=== PATIENT | female | born 1945 | race Caucasian/White ===

== ENCOUNTER 2017-11-17 01:03 | Outpatient (CLI) | payer MEDICARE, OTHER, SELFPAY ==
[2017-11-17 12:19] LABS: Hemoglobin A1C 7.7 % (4.5-6.2)
== END 2017-11-17 01:23 ==
PROVIDERS: PCP Emergency Medicine; Visit Provider Emergency Medicine
DX: E11.9 Type 2 diabetes mellitus without complications (principal)
CPT/HCPCS: 36415; 82533; 83036

== ENCOUNTER 2018-03-16 12:37 | Outpatient (CLI) | payer MEDICARE, OTHER, SELFPAY ==
[2018-03-16 13:45] LABS: COMMENT (LAB VIEW ONLY) 224.63 mg/dL; Microalb ug/mg Crea 6.1 ug/mg Cr
== END 2018-03-16 12:57 ==
PROVIDERS: PCP Emergency Medicine; Visit Provider Emergency Medicine
DX: E11.9 Type 2 diabetes mellitus without complications (principal)
CPT/HCPCS: 36415; 82043; 82570; 83036

== ENCOUNTER 2018-09-12 01:57 | Outpatient (CLI) | payer MEDICARE, OTHER, SELFPAY ==
[2018-09-12 11:39] LABS: Anion Gap 12.7 mmol/L (3-11); BUN 16 mg/dL (7-18); CO2 25.3 mmol/L (21.0-32.0); CREATININE 0.82 mg/dL (0.55-1.02); Chloride 104 mmol/L (98-107); Glucose 209 mg/dL (70-100); Potassium 3.8 mmol/L (3.5-5.1); Sodium 142 mmol/L (136-145)
[2018-09-12 11:40] LABS: Hemoglobin A1C 7.8 % (4.5-6.2)
== END 2018-09-12 02:17 ==
PROVIDERS: PCP Emergency Medicine; Visit Provider Emergency Medicine
DX: E11.9 Type 2 diabetes mellitus without complications (principal)
CPT/HCPCS: 36415; 80048; 83036

== ENCOUNTER 2019-08-08 01:24 | Outpatient (CLI) | payer MEDICARE, OTHER, SELFPAY ==
--- NOTE | 2019-08-08 06:45 | DI.US_ITS ---
EXAM: US ABDOMEN CLINICAL HISTORY: LUQ epigastric pain,r10.11 TECHNIQUE: Ultrasound abdomen performed using standard protocol. COMPARISON: CT RENAL COLIC WO CONTRAST from 05/19/2014 FINDINGS: ABDOMINAL AORTA AND IVC: Visualized portions normal caliber. PANCREAS: Normal where visualized. LIVER: Hepatomegaly. Fatty infiltration. Hepatopedal flow in the Portal Vein. GALLBLADDER: Status post cholecystectomy. BILIARY SYSTEM: Common bile duct measures 5.3 mm. No intrahepatic biliary ductal dilation. KIDNEYS: Kidneys are symmetric in size. No evidence of renal calculi. Mild prominence of the left deneen al pelvis. This may represent a extrarenal pelvis versus mild hydronephrosis.. No renal mass or cys t identified. SPLEEN: Not enlarged. ASCITES: None seen. IMPRESSION: 1. Mild prominence of the left renal pelvis. This may represent mild hydronephrosis versus left extr arenal pelvis. Please correlate clinically. 2. Hepatomegaly and hepatic steatosis. 3. Status post cholecystectomy no biliary ductal dilatation. DATA REPOSITORY:
== END 2019-08-08 01:44 ==
PROVIDERS: PCP Emergency Medicine; Visit Provider Emergency Medicine
DX: R10.12 Left upper quadrant pain (principal); R10.13 Epigastric pain; K76.0 Fatty (change of) liver, not elsewhere classified; N13.30 Unspecified hydronephrosis; R16.0 Hepatomegaly, not elsewhere classified; Z90.49 Acquired absence of other specified parts of digestive tract
CPT/HCPCS: 76700

== ENCOUNTER 2019-08-08 02:24 | Outpatient (CLI) | payer MEDICARE, OTHER, SELFPAY ==
[2019-08-08 08:42] LABS: Anion Gap 13.3 mmol/L (3-11); BUN 14 mg/dL (7-18); CO2 22.7 mmol/L (21.0-32.0); CREATININE 0.77 mg/dL (0.55-1.02); Calcium 9.3 mg/dL (8.5-10.1); Chloride 104 mmol/L (98-107); Glucose 203 mg/dL (74-106); Sodium 140 mmol/L (136-145)
== END 2019-08-08 02:44 ==
PROVIDERS: PCP Emergency Medicine; Visit Provider Emergency Medicine
DX: E11.9 Type 2 diabetes mellitus without complications (principal); I10 Essential (primary) hypertension; R10.12 Left upper quadrant pain; R10.13 Epigastric pain; N13.30 Unspecified hydronephrosis; K76.0 Fatty (change of) liver, not elsewhere classified; R16.0 Hepatomegaly, not elsewhere classified; Z90.49 Acquired absence of other specified parts of digestive tract
CPT/HCPCS: 36415; 80048; 76700; 83036

== ENCOUNTER 2019-08-16 03:06 | Outpatient (CLI) | payer MEDICARE, OTHER, SELFPAY ==
[2019-08-16] MEDS: Omnipaque 350 MG/ML 100 ML BTL IJ (09:19)
[2019-08-16] MEDS: Normal Saline Flush 10 ML SYR IVP (09:21)
[2019-08-16] MEDS: Normal Saline - Diluent 50 ML VIAL IV (09:21)
[2019-08-16] MEDS: Breeza Beverage 473 ML BTL PO (09:22)
--- NOTE | 2019-08-16 09:30 | DI.CT_ITS ---
EXAM: CT ABDOMEN PELVIS W CLINICAL HISTORY: Left abdominal pain with abnormal ultrasound,R93.5. TECHNIQUE: Imaging Protocol: Axial computed tomography images with coronal and sagittal reformatted images were created and reviewed CONTRAST MATERIAL: Intravenous: Omnipaque 350 Contrast volume:99 cc Oral: Yes COMPARISON: CT RENAL COLIC WO CONTRAST from 05/19/2014 FINDINGS: ABDOMEN: Lung Bases: Normal where visualized. Liver: Moderate hepatic steatosis.. No measurable mass. Gallbladder and biliary tract: Status post cholecystectomy. No radiodense calculus or dilation. Pancreas: Normal density, no abnormal calcifications or inflammatory process. Spleen: Normal. Kidneys: Normal size, contour and axis. No radiodense stones or obstructive uropathy. No masses seen. Mildly prominent bilateral extrarenal pelves. Adrenal glands: No masses seen. Abdominal Aorta: Abdominal portion non-dilated. Mild calcification. PELVIS: Bladder: Symmetric distention, no gross wall thickening. No bladder calculi. Bowel: No obstruction or bowel wall thickening. Extensive diverticulosis of the descending and sigmoi d colon. No evidence of diverticulitis. Normal appendix. Peritoneal cavity: No ascites, collection or mesenteric inflammatory response. Bones: Mild degenerative disc changes.. Reproductive organs: Calcified uterine fibroid. Lymph nodes: Unremarkable. Impression: Hepatic steatosis. No evidence renal calculi or hydronephrosis. Extensive diverticulosis. No evide nce of diverticulitis.. RADIATION DOSE DELIVERED: 1,272.22mGy.cm Total DLP DATA REPOSITORY: All CT scans at this facility are submitted to the National Radiology Data Registry (NRDR) Dose Index Registry (DIR) with the [employer] ([employer]). RADIATION OPTIMIZATION: All CT scans at this facility use at least one of these dose optimization te chniques: automated exposure control; mA and/or kV adjustment per patient size (includes targeted exa ms where dose is matched to clinical indication); or iterative reconstruction.
== END 2019-08-16 03:26 ==
PROVIDERS: PCP Emergency Medicine; Visit Provider Emergency Medicine
DX: R10.32 Left lower quadrant pain (principal); R93.5 Abnormal findings on diagnostic imaging of other abdominal regions, including retroperitoneum; K76.0 Fatty (change of) liver, not elsewhere classified; K57.30 Diverticulosis of large intestine without perforation or abscess without bleeding
CPT/HCPCS: 74177; J3490

== ENCOUNTER 2020-01-01 21:15 | Outpatient (REF) | payer MEDICARE, OTHER, SELFPAY ==
[2020-01-01 22:55] LABS: Hemoglobin A1C 9.9 % (<5.7)
== END 2020-01-01 21:35 ==
LOC: LBN 21:15
PROVIDERS: PCP Emergency Medicine; Visit Provider Emergency Medicine
DX: E11.9 Type 2 diabetes mellitus without complications (principal)
CPT/HCPCS: 83036

== ENCOUNTER 2020-08-12 17:45 | Outpatient (REF) | payer MEDICARE, OTHER, SELFPAY ==
[2020-08-12 22:05] LABS: Anion Gap 9.4 mmol/L (3-11); BUN 16 mg/dL (7-18); CO2 25.6 mmol/L (21.0-32.0); CREATININE 0.8 mg/dL (0.55-1.02); Calcium 9.2 mg/dL (8.5-10.1); Calculated LDL 72 mg/dL (<100); Chloride 100 mmol/L (98-107); Cholesterol 166 mg/dL (<200); Glucose 267 mg/dL (74-106); HDL Cholesterol 37 mg/dL (40-60); Potassium 3.7 mmol/L (3.5-5.1); Sodium 135 mmol/L (136-145); Triglyceride 287 mg/dL (<150)
== END 2020-08-12 17:46 | disposition home or self-care (01) ==
LOC: NCHCN 17:45
PROVIDERS: PCP Emergency Medicine; Visit Provider Emergency Medicine
DX: I10 Essential (primary) hypertension (principal); E11.9 Type 2 diabetes mellitus without complications
CPT/HCPCS: 80048; 80061; 83036

== ENCOUNTER 2021-02-12 03:18 | Outpatient (CLI) | payer MEDICARE, OTHER, SELFPAY ==
[2021-02-12 16:31] LABS: Hemoglobin A1C 8.4 % (<5.7)
[2021-02-12 16:53] LABS: Anion Gap 14.2 mmol/L (3-11); BUN 13 mg/dL (7-18); CO2 23.8 mmol/L (21.0-32.0); CREATININE 0.9 mg/dL (0.55-1.02); Calcium 9.3 mg/dL (8.5-10.1); Chloride 104 mmol/L (98-107); Glucose 225 mg/dL (74-106); Potassium 3.9 mmol/L (3.5-5.1); Sodium 142 mmol/L (136-145)
== END 2021-02-12 03:19 | disposition home or self-care (01) ==
LOC: LBO 03:18
PROVIDERS: PCP Emergency Medicine; Visit Provider Emergency Medicine
DX: I10 Essential (primary) hypertension (principal); E11.9 Type 2 diabetes mellitus without complications
CPT/HCPCS: 36415; 80048; 83036

== ENCOUNTER 2021-07-07 10:42 | Outpatient (CLI) | payer MEDICARE, OTHER, SELFPAY ==
[2021-07-07 13:03] LABS: Abs Immature Grans 0.01 10^3/uL (0.0-0.06); HCT 24.9 % (36.0-46.0); HGB 8.1 g/dL (11.2-15.7); MCH 28.4 pg (27.0-33.0); MCHC 32.5 % (32.0-36.0); MCV 87 fL (80-95); MPV 9.8 fL (8.0-11.0); Platelet Count 115 10^3/uL (130-400); RBC 2.85 10^6/uL (3.93-5.22); RDW 15.9 % (11.7-14.6); RDW-SD 49.5 fL; WBC 2.92 10^3/uL (4.4-10.8)
[2021-07-07 13:40] LABS: Absolute Eosinophil Count 0.03 10^3/uL (0.0-0.7); Absolute Monocyte Count 0.12 10^3/uL (0.1-0.8); Atypical Lymphocytes % 2
[2021-07-07 13:41] LABS: Diff Comment Manual Differential; Hypochromasia 2+; Polychromasia Present
[2021-07-07 13:42] LABS: Poikilocytes 2+
[2021-07-07 13:44] LABS: Absolute Neutrophil Count 0.15 10^3/uL (1.2-6.7)
[2021-07-07 14:13] LABS: ALT 27 U/L (14-59); AST 30 U/L (15-37); Albumin 3.8 g/dL (3.4-5.0); Alkaline Phosphatase 109 U/L (46-116); Anion Gap 11.5 mmol/L (3-11); BUN 13 mg/dL (7-18); Bilirubin, Total 0.5 mg/dL (0.2-1.0); CO2 26.5 mmol/L (21.0-32.0); CREATININE 0.8 mg/dL (0.55-1.02); Calcium 8.5 mg/dL (8.5-10.1); Chloride 101 mmol/L (98-107); Glucose 225 mg/dL (74-106); Potassium 3.5 mmol/L (3.5-5.1); Sodium 139 mmol/L (136-145); Total Protein 7.2 g/dL (6.4-8.2)
[2021-07-07 19:08] LABS: Lab Add On Test DONE
[2021-07-07 19:19] LABS: Reticulocyte 1.7 % (0.5-2.4)
[2021-07-07 20:35] LABS: Iron 125 ug/dL (50-170)
[2021-07-07 21:02] LABS: Folate 11.2 ng/mL (8.6-20.0); Vitamin B12 718 pg/mL (193-986)
[2021-07-09 10:44] LABS: Haptoglobin 155 mg/dL (32-197)
[2021-07-20 18:02] LABS: Ferritin > 2000 ng/mL (8-252)
== END 2021-07-07 10:43 | disposition home or self-care (01) ==
LOC: LOS 10:43
PROVIDERS: Family Medicine; PCP Family Medicine; Visit Provider Physician Assistant
DX: D70.9 Neutropenia, unspecified (principal); R53.81 Other malaise; R79.89 Other specified abnormal findings of blood chemistry
CPT/HCPCS: 36415; 80053; 82607; 82728; 82746; 83010; 83540; 85025; 85045

== ENCOUNTER 2021-07-07 17:55 | Outpatient (REF) | payer MEDICARE, OTHER, SELFPAY ==
[2021-07-07 23:00] LABS: Bilirubin Negative (Negative); Blood Negative (Negative); Clarity Turbid (Clear); Glucose Negative (Negative); Ketones Negative (Negative); Leukocyte Esterase Negative (Negative); Nitrite Negative (Negative); Specific Gravity >= 1.030 (1.005-1.025); pH 5.5 (5-8)
== END 2021-07-07 17:56 | disposition home or self-care (01) ==
LOC: LBN 17:55
PROVIDERS: PCP Family Medicine; Visit Provider Physician Assistant
DX: R39.89 Other symptoms and signs involving the genitourinary system (principal)
CPT/HCPCS: 81003

== ENCOUNTER 2021-07-19 13:32 | Inpatient (IN) | payer MEDICARE, OTHER, SELFPAY ==
[2021-07-19] VITALS (57 sets, daily range): BP systolic 124–155; BP diastolic 46–121; PULSE 61–82; RESP 12–21; TEMP 36.2–37.3; O2SAT 93–100
--- NOTE | 2021-07-19 13:45 | RT.EKG_ITS ---
APPROVED REPORT Exam: Resting ECG Reason for Exam: weakness Patient Location: E HR:79 bpm ECG Measurements Heart Rate 79 AXIS VT 170 P -10 QRSd 113 QRS 5 QT 531 T [id number] QTc 611 Conclusion Sinus rhythm...normal P axis, V-rate 60- 99 LVH with secondary repolarization abnormality...multi-LVH criteria, abnrm ST-T Inferior infarct, old...Q >35mS, II III aVF Prolonged QT interval...QTc >500mS sinus rhythm at 79, normal axis, long QT, no STEMI, nondiagnostic EKG
--- NOTE | 2021-07-19 13:45 | DI.RAD_ITS ---
Exam(s) XR PORTABLE CHEST AP EXAM: XR PORTABLE CHEST AP CLINICAL HISTORY: cough TECHNIQUE: 2D digital imaging was performed. Portable exam. COMPARISON: CT CT ABDOMEN PELVIS W from 08/16/2019 FINDINGS: Lungs poorly inflated. LUNGS: Clear. No pleural abnormality seen. HEART: Normal. AORTA: Calcified. Normal diameter.. BONES: Unremarkable for age. Soft tissues: Unremarkable. IMPRESSION: No acute findings. DATA REPOSITORY: RADIATION DOSE DELIVERED:
[2021-07-19] MEDS: Normal Saline 1,000 ML 1000 ML IV (14:51)
[2021-07-19 14:59] LABS: Abs Immature Grans 0.02 10^3/uL (0.0-0.06); MCHC 34.1 % (32.0-36.0); MCV 85 fL (80-95); RBC 2.07 10^6/uL (3.93-5.22); RDW 15.8 % (11.7-14.6); RDW-SD 48.2 fL
--- NOTE | 2021-07-19 15:07 | W.ED.GENAD ---
Discharge Plan Disposition Condition: Fair Discharge Details Chief Complaint: GenMedical Admit Date/Time: 07/19/21 16:20 Admit Provider: Funmilayo Lee Attending Provider: Funmilayo Lee Primary Care Provider: Liam Connolly ED Provider: Elizabeth Aldana Discharge Instructions Activity:: Activity as Tolerated Equipment/Supplies:: No Equipment Needed Diet:: As Tolerated Discharge Orders Discharge Orders: Discharge Order (Routine); Ordered 07/21/21 Ordered By: Keshia Shaw Discharge Data Discharge Date/Time-TO BE ENTERED AT DEPARTURE: 07/19/21 17:07 Medical Decision Making Susan Arthur is a 75-year-old woman with a history of hypertension, hyperlipidemia, diabetes, dementia presenting to the emergency department with generalized weakness. Patient is accompanied by her who also provides the history. Patient's reports that patient has advanced dementia. He states that she has been eating less and less progressively over the last few months particularly in the last 2 weeks. He states that patient had blood work recently showing concern for leukemia, and she is being followed for this by her PCP. Patient has been reported that patient has become more generally weak over the past 2 weeks, and this morning she was not able to walk down the stairs without significant assistance from him. He states that she is still able to walk to the bathroom on her own today but stairs seem to be the major problem. He reports that she has had somewhat of a cough over the past few days. Patient's and patient deny any pain, fever, shortness of breath, vomiting, numbness, focal weakness, rash. Patient's abdomen states that patient has had some diarrhea that he attributes to her metformin. On exam patient is alert but not oriented. Nonfocal neurologic exam. Patient's reports that she is at her baseline mental status. Concern for leukemia, anemia, metabolic/electrolyte derangement, dehydration, COVID, UTI, other. Doubt acute coronary syndrome. Exam/history at this time is not consistent with sepsis, meningitis, acute aortic process. Plan for IV placement, EKG, screening labs, chest x-ray, IV fluid hydration. Will monitor and reassess. Hemoglobin resulted at 6.0, potassium 2.7, ANC 0.08. Will replete potassium. We will give 1 unit of irradiated blood. Plan for admission. Medical Records Medical records reviewed: Yes I reviewed the patient's medical records. Imaging Data Radiologic Study: Attestation: I personally reviewed and interpreted this imaging study as follows: Radiologist's impression: CLINICAL HISTORY:? cough TECHNIQUE:? 2D digital imaging was performed.? Portable exam. COMPARISON:? CT CT ABDOMEN ? PELVIS W from 08/16/2019 FINDINGS: ?Lungs poorly inflated. LUNGS: Clear. No pleural abnormality seen. HEART: Normal. AORTA: Calcified.? Normal diameter.. BONES: Unremarkable for age.? Soft tissues: Unremarkable. IMPRESSION: No acute? findings. Lab Data Lab results reviewed: Yes I reviewed the patient's lab results. Labs: Laboratory Tests Range/Units 07/19/21 07/19/21 07/19/21 14:44 14:44 15:09 WBC (4.4-10.8) 10^3/uL 1.04 L* RBC (3.93-5.22) 10^6/uL 2.07 L Hgb (11.2-15.7) g/dL 6.0 L* Hct (36.0-46.0) % 17.6 L* MCV (80-95) fL 85 MCH (27.0-33.0) pg 29.0 MCHC (32.0-36.0) % 34.1 RDW (11.7-14.6) % 15.8 H Plt Count (130-400) 10^3/uL MPV (8.0-11.0) fL Immature Gran % 0.0 Neutrophils % 8.0 Band Neutrophils % 1 Lymphocytes % 91.0 Monocytes % 0.0 Eosinophils % 0.0 Basophils % 0.0 Nucleated RBC % (0.0-0.3) % 4.0 H Absolute Neutrophils (1.2-6.7) 10^3/uL 0.08 L* Absolute Lymphocytes (1.2-3.4) 10^3/uL 0.95 L Absolute Monocytes (0.1-0.8) 10^3/uL 0.00 L Absolute Eosinophils (0.0-0.7) 10^3/uL 0.00 Absolute Basophils (0.0-0.2) 10^3/uL 0.00 RBC Morphology See Below Polychromasia Present Poikilocytosis 1+ Anisocytosis 1+ Sodium (136-145) mmol/L 138 Potassium (3.5-5.1) mmol/L 2.7 L* Chloride (98-107) mmol/L 99 Carbon Dioxide (21.0-32.0) mmol/L 26.0 Anion Gap (3-11) mmol/L 13.0 H BUN (7-18) mg/dL 17 Creatinine (0.55-1.02) mg/dL 0.9 Estimated GFR/1.73 m2 (mL/min/1.73m2) >= 60.00 Glucose (74-106) mg/dL 254 H Calcium (8.5-10.1) mg/dL 8.7 Magnesium (1.8-2.4) mg/dL 2.0 Total Bilirubin (0.2-1.0) mg/dL 1.2 H AST (15-37) U/L 31 ALT (14-59) U/L 21 Alkaline Phosphatase (46-116) U/L 102 Troponin I (<or=60) ng/L < 50 Total Protein (6.4-8.2) g/dL 7.7 Albumin (3.4-5.0) g/dL 3.7 TSH (0.36-3.74) uIU/mL 1.23 COVID-19 Source Nasal/Nares SARS-CoV-2 (PCR) (Negative) Negative ECG Data Attestation: I personally reviewed and interpreted this ECG (s) as follows: Interpretation: EKG shows sinus rhythm at 79, normal axis, long QT, no STEMI, nondiagnostic EKG HPI General Date/Time Provider Initiated Documentation: 07/19/21 13:36. Limitations to Documentation: no limitations. Information obtained by: patient, RN notes reviewed and old records reviewed. HPI Narrative: Susan Arthur is a 75-year-old woman with a history of hypertension, hyperlipidemia, diabetes, dementia presenting to the emergency department with generalized weakness. Patient is accompanied by her who also provides the history. Patient's reports that patient has advanced dementia. He states that she has been eating less and less progressively over the last few months particularly in the last 2 weeks. He states that patient had blood work recently showing concern for leukemia, and she is being followed for this by her PCP. Patient has been reported that patient has become more generally weak over the past 2 weeks, and this morning she was not able to walk down the stairs without significant assistance from him. He states that she is still able to walk to the bathroom on her own today but stairs seem to be the major problem. He reports that she has had somewhat of a cough over the past few days. Patient's and patient deny any pain, fever, shortness of breath, vomiting, numbness, focal weakness, rash. Patient's abdomen states that patient has had some diarrhea that he attributes to her metformin. Related Data Home Medications Medication Instructions Recorded Confirmed blood-glucose meter (FreeStyle ##1 07/29/16 07/28/21 Lite Meter kit) blood sugar diagnostic (FreeStyle #90 strips 01/29/20 07/28/21 Lite Strips) diltiazem HCl 120 mg 120 mg PO DAILY #90 caps 03/29/21 07/28/21 capsule,extended release 24 hr (Cartia XT) pravastatin 80 mg tablet 80 mg PO DAILY #90 tab-caps 03/29/21 07/28/21 Previous Rx's Medication Instructions Recorded blood sugar diagnostic (FreeStyle #90 strips 01/29/20 Lite Strips) diltiazem HCl 120 mg 120 mg PO DAILY #90 caps 03/29/21 capsule,extended release 24 hr (Cartia XT) pravastatin 80 mg tablet 80 mg PO DAILY #90 tab-caps 03/29/21 Allergies Allergy/AdvReac Type Severity Reaction Status Date / Time lovastatin AdvReac Mild Verified 07/28/21 11:17 lisinopril AdvReac COUGH Verified 07/28/21 11:17 General Stated Complaint: GenMedical SEGUN: 3 Review of Systems Narrative: Constitutional: denies fevers, reports generalized weakness Eyes: denies eye pain ENT: denies ear pain, dental pain, sore throat Cardiovascular: denies chest pain, edema Respiratory: denies SOB, reports cough GI: denies abdominal pain, vomiting, reports mild chronic diarrhea : denies flank pain MSK: denies back pain, neck pain, arthralgias, myalgias Skin: denies rash Neuro: denies headaches, numbness, focal weakness PFSH All Active Problems (Updated 07/29/21 @ 08:20 by Meagan ESPARZA) Pancytopenia (Acute) Neutropenia (Acute) Abnormal ultrasound of abdomen (Acute) Cholecystitis (Acute 05/22/14) Lipoma (Acute) Uterine leiomyoma (Acute 01/26/01) Obesity (Acute) Hyperlipidemia (Acute 05/24/12) Essential hypertension (Acute 05/30/13) Diabetes mellitus (Acute 04/15/10) foot neuropathy Dementia (Acute 12/05/13) probable Alzheimers (2008 MRI, TSH and B 12 normal, [facility] eval) Diabetes mellitus, type II (Chronic) Essential hypertension (Chronic) Dementia (Chronic) Anemia (Chronic) Hyperlipidemia (Chronic) Biliary colic (Acute 05/19/14) Medical History (Updated 07/29/21 @ 08:20 by Meagan ESPARZA) Palliative care patient Surgical History Cholecystectomy 05/21/14 Family History Mother Diabetes Essential hypertension Heart disease Father Essential hypertension Personal history of malignant neoplasm Heart disease Hyperlipidemia Sister No problems noted. Sister Personal history of malignant neoplasm Brother Diabetes Brother No problems noted. Brother No problems noted. Grandfather No problems noted. Grandfather Essential hypertension Heart disease Grandmother Diabetes Personal history of malignant neoplasm Grandmother Diabetes Essential hypertension Brother Heart disease Brother No problems noted. Daughter No problems noted. Daughter No problems noted. Social History Smoking/Tobacco Use Status: Never Smoking risk assessment performed?: Yes Alcohol Intake: current Alcohol Intake frequency: a few times a month Drug use: Never Substance use type: does not use Duration: 15-30 minutes/day Frequency: 1-2 times per week Exam Narrative Exam Narrative: Constitutional: well and [id number], pleasant, does not follow all commands HENT: head atraumatic/normocephalic/normal inspection, mucous membranes moist Eyes: conjunctiva normal, sclera normal, pupils 3mm b/l Neck: no stridor, normal ROM, trachea midline Chest: normal inspection Resp: normal work of breathing, LCTAB Cardio: normal rate, normal rhythm, no murmur appreciated GI: abdomen soft, non-tender, non-distended Back: normal inspection, no rash Skin: warm, dry, normal color, no rash Neuro: alert, oriented to person only, does not follow commands, cranial nerves II through XII intact, motor 5 out of 5 throughout, normal tone Ext: no edema, no posterior calf tenderness to palpation Psych: normal mood, normal affect Course Vital Signs Vital signs: Vital Signs Temperature 36.2 C L 07/19/21 13:37 Pulse 82 07/19/21 13:37 Respiratory Rate 18 07/19/21 13:37 Blood Pressure 138/121 H 07/19/21 13:37 Pulse Oximetry 100 07/19/21 13:37 Temperature 36.2 C L 07/19/21 13:37 Temperature Source Skin 07/19/21 13:37 Pulse 82 07/19/21 13:37 Respiratory Rate 18 07/19/21 13:53 Respiratory Effort 07/19/21 13:53 Blood Pressure 138/121 H 07/19/21 13:37 Pulse Oximetry 100 07/19/21 13:37 Oxygen Delivery Method Room Air 07/19/21 13:37 Oxygen Flow Rate 0 07/19/21 13:37 Pain Level 0 07/19/21 13:37
[2021-07-19 15:13] LABS: Source Nasal/Nares
[2021-07-19 15:22] LABS: HCT 17.6 % (36.0-46.0); WBC 1.04 10^3/uL (4.4-10.8)
[2021-07-19 15:49] LABS: ALT 21 U/L (14-59); AST 31 U/L (15-37); Albumin 3.7 g/dL (3.4-5.0); Alkaline Phosphatase 102 U/L (46-116); BUN 17 mg/dL (7-18); Bilirubin, Total 1.2 mg/dL (0.2-1.0); CREATININE 0.9 mg/dL (0.55-1.02); Calcium 8.7 mg/dL (8.5-10.1); Chloride 99 mmol/L (98-107); Glucose 254 mg/dL (74-106); Sodium 138 mmol/L (136-145); TSH (W/Ref FT4) 1.23 uIU/mL (0.36-3.74); Total Protein 7.7 g/dL (6.4-8.2); Troponin I < 50 ng/L (<or=60)
[2021-07-19 16:06] LABS: COVID-19 PCR Negative (Negative)
[2021-07-19 16:06] LABS: Potassium 2.7 mmol/L (3.5-5.1)
[2021-07-19 16:09] LABS: Bands % 1
[2021-07-19 16:11] LABS: Absolute Lymphocyte Count 0.95 10^3/uL (1.2-3.4); Absolute Neutrophil Count 0.08 10^3/uL (1.2-6.7)
[2021-07-19 16:12] LABS: Anisocytosis 1+; Diff Comment Manual Differential
[2021-07-19 16:13] LABS: Poikilocytes 1+; Polychromasia Present
[2021-07-19] MEDS: POTASSIUM CHLORIDE 20 MEQ/100 ML BAG 50 MEQ IVPB ×2 (16:18→21:34)
--- NOTE | 2021-07-19 17:53 | W.PM.HP.N ---
Date of service: 07/19/21 Time of Service: 16:53 Assessment and Plan Assessment and plan (1) Pancytopenia: Status: Acute Assessment and plan: agrees to transfuse 1 unit of blood in ED which was initiated. will admit under hospitalist services for further evaluation. Labs concerning for leukemia and it is unlikely will pursue work up or treatment. she has been seen by Dr Leblanc in the past and will consult her again for goals of care discussion and further recommendations at this time. patient is DNR/DNI (2) Dementia: Status: Acute Assessment and plan: severe advanced. she is at her baseline. safety precautions (3) Diabetes mellitus, type II: Status: Chronic Assessment and plan: managed at home on oral agents. will continue at this time with a carb controlled diet no finger sticks or coverage for now pending palliative care consult discussed with DR Lee History of Present Illness History of Present Illness Chief Complaint: weakness Narrative: This is a 75-year-old woman with a history of hypertension, hyperlipidemia, diabetes, dementia presenting to the emergency department with generalized weakness.? Patient is accompanied by her who also provides the history as patient unable d/t baseline severe dementia. Work up shows hemoglobin at 6.0, potassium 2.7, ANC 0.08.?Potassium repleted and she is given 1 unit of irradiated blood in the ED. Hospitalist services is consulted for admission and further goals of care discussion. She has been followed by Dr Leblanc. [facility], [facility] All Active Problems (Updated 07/19/21 @ 17:57 by Bettina Stoner NP) Pancytopenia (Acute) Neutropenia (Acute) Palliative care patient (Acute) Abnormal ultrasound of abdomen (Acute) Cholecystitis (Acute 05/22/14) Lipoma (Acute) Uterine leiomyoma (Acute 01/26/01) Obesity (Acute) Hyperlipidemia (Acute 05/24/12) Essential hypertension (Acute 05/30/13) Diabetes mellitus (Acute 04/15/10) foot neuropathy Dementia (Acute 12/05/13) probable Alzheimers (2008 MRI, TSH and B 12 normal, [facility] clinic eval) Diabetes mellitus, type II (Chronic) Essential hypertension (Chronic) Dementia (Chronic) Anemia (Chronic) Hyperlipidemia (Chronic) Biliary colic (Acute 05/19/14) Surgical History Cholecystectomy 05/21/14 Family History Mother Diabetes Essential hypertension Heart disease Father Essential hypertension Personal history of malignant neoplasm Heart disease Hyperlipidemia Sister No problems noted. Sister Personal history of malignant neoplasm Brother Diabetes Brother No problems noted. Brother No problems noted. Grandfather No problems noted. Grandfather Essential hypertension Heart disease Grandmother Diabetes Personal history of malignant neoplasm Grandmother Diabetes Essential hypertension Brother Heart disease Brother No problems noted. Daughter No problems noted. Daughter No problems noted. Social History Smoking/Tobacco Use Status: Never Smoking risk assessment performed?: Yes Alcohol Intake: current Alcohol Intake frequency: a few times a month Drug use: Never Substance use type: does not use Duration: 15-30 minutes/day Frequency: 1-2 times per week Meds Allergies and Home Medications Allergies Allergy/AdvReac Type Severity Reaction Status Date / Time lovastatin AdvReac Mild Verified 07/19/21 13:46 lisinopril AdvReac COUGH Verified 07/19/21 13:46 Home Medications Medication Instructions Recorded Confirmed Type blood-glucose meter (FreeStyle ##1 07/29/16 07/07/21 History Lite Meter kit) cyanocobalamin (vitamin B-12) 500 1 tab PO DAILY #180 tabs 07/29/16 07/19/21 History mcg tablet (Vitamin B-12) lancets 28 gauge (FreeStyle #50 ea 07/29/16 07/07/21 History Lancets) blood sugar diagnostic (FreeStyle #90 strips 01/29/20 07/07/21 Rx Lite Strips) hydrochlorothiazide 25 mg tablet 25 mg PO DAILY #90 tabs 12/14/20 07/19/21 Rx diltiazem HCl 120 mg 120 mg PO DAILY #90 caps 03/29/21 07/19/21 Rx capsule,extended release 24 hr (Cartia XT) potassium chloride 10 mEq 10 meq PO BID #180 tab-caps 03/29/21 07/19/21 Rx tablet,extended release pravastatin 80 mg tablet 80 mg PO DAILY #90 tab-caps 03/29/21 07/19/21 Rx glimepiride 2 mg tablet (Amaryl) 2 mg PO QAM #90 tabs 06/11/21 07/19/21 Rx metformin 500 mg tablet 500 mg PO BID #180 tabs 06/30/21 07/19/21 Rx Exam Const General: cooperative, comfortable, no acute distress, well developed and well groomed Nutritional Appearance: well nourished Orientation: alert, awake and confused (severe advanced dementia) [facility] Head: normal to inspection, normocephalic and atraumatic Mouth: oral mucosae normal Chest Chest: normal inspection of the chest Resp Effort & Inspection: normal respiratory effort Auscultation: clear to auscultation bilaterally Cardio Rate: regular rate Rhythm: regular rhythm GI Inspection: normal to inspection Palpation: soft Auscultation: normal bowel sounds Skin General skin exam: no rashes or lesions noted Neuro General: patient alert, patient awake, tone normal and moves all extremities Extrem General: normal to inspection, full ROM and no pedal edema Results Labs Result diagrams: 07/20/21 05:51 07/20/21 05:51 Labs: Laboratory Results - last 24 hr 07/19/21 07/19/21 07/19/21 14:44 14:44 15:09 WBC 1.04 L* RBC 2.07 L Hgb 6.0 L* Hct 17.6 L* MCV 85 MCH 29.0 MCHC 34.1 RDW 15.8 H Plt Count MPV Immature Gran % 0.0 Neutrophils % 8.0 Band Neutrophils % 1 Lymphocytes % 91.0 Monocytes % 0.0 Eosinophils % 0.0 Basophils % 0.0 Nucleated RBC % 4.0 H Absolute Neutrophils 0.08 L* Absolute Lymphocytes 0.95 L Absolute Monocytes 0.00 L Absolute Eosinophils 0.00 Absolute Basophils 0.00 RBC Morphology See Below Polychromasia Present Poikilocytosis 1+ Anisocytosis 1+ Sodium 138 Potassium 2.7 L* Chloride 99 Carbon Dioxide 26.0 Anion Gap 13.0 H BUN 17 Creatinine 0.9 Estimated GFR/1.73 m2 >= 60.00 Glucose 254 H Calcium 8.7 Magnesium 2.0 Total Bilirubin 1.2 H AST 31 ALT 21 Alkaline Phosphatase 102 Troponin I < 50 Total Protein 7.7 Albumin 3.7 TSH 1.23 COVID-19 Source Nasal/Nares SARS-CoV-2 (PCR) Negative Patient ABO/Rh Antibody Screen Crossmatch 07/19/21 16:36 WBC RBC Hgb Hct MCV MCH MCHC RDW Plt Count MPV Immature Gran % Neutrophils % Band Neutrophils % Lymphocytes % Monocytes % Eosinophils % Basophils % Nucleated RBC % Absolute Neutrophils Absolute Lymphocytes Absolute Monocytes Absolute Eosinophils Absolute Basophils RBC Morphology Polychromasia Poikilocytosis Anisocytosis Sodium Potassium Chloride Carbon Dioxide Anion Gap BUN Creatinine Estimated GFR/1.73 m2 Glucose Calcium Magnesium Total Bilirubin AST ALT Alkaline Phosphatase Troponin I Total Protein Albumin TSH COVID-19 Source SARS-CoV-2 (PCR) Patient ABO/Rh B Positive Antibody Screen NEGATIVE Crossmatch See Detail Last Vital Signs Temp 36.2 C L 07/19/21 13:37 Pulse 67 07/19/21 16:16 Resp 18 07/19/21 16:01 BP 135/46 L 07/19/21 16:16 Pulse Ox 99 07/19/21 16:01
[2021-07-19] MEDS: Potassium Chloride 10 MEQ TABCR PO (20:32)
[2021-07-20 06:42] LABS: MCH 29.2 pg (27.0-33.0); MCV 86 fL (80-95); RBC 2.33 10^6/uL (3.93-5.22); RDW 15.5 % (11.7-14.6); RDW-SD 47.3 fL
[2021-07-20 06:56] LABS: ALT 19 U/L (14-59); AST 25 U/L (15-37); Alkaline Phosphatase 89 U/L (46-116); BUN 16 mg/dL (7-18); Bilirubin, Total 1.2 mg/dL (0.2-1.0); CREATININE 0.8 mg/dL (0.55-1.02); Chloride 107 mmol/L (98-107); Glucose 228 mg/dL (74-106); Sodium 143 mmol/L (136-145); Total Protein 6.5 g/dL (6.4-8.2)
[2021-07-20 07:01] LABS: HGB 6.8 g/dL (11.2-15.7); WBC 1.18 10^3/uL (4.4-10.8)
[2021-07-20 07:12] VITALS: BP 114/67; PULSE 65; RESP 17; TEMP 36.7; O2SAT 99
[2021-07-20 07:12] LABS: Absolute Neutrophil Count 0.12 10^3/uL (1.2-6.7); Bands % 2
[2021-07-20 07:13] LABS: Absolute Basophil Count 0.05 10^3/uL (0.0-0.2); Absolute Lymphocyte Count 0.99 10^3/uL (1.2-3.4); Diff Comment Manual Differential; Metamyelocytes % 2; Platelet Count 88 10^3/uL (130-400); RBC Morphology Normal
--- NOTE | 2021-07-20 09:55 | IN_ITS ---
Date of service: 07/20/21 Time of Service: 09:55 PT Notes Visit Reasons: Pancytopenia Physical Therapy Inpatient Initial Evaluation Date: 07/20/2021 Referring Doctor: Bettina Stoner NP PT Orders: PT CONSULT: Eval/Treat Precautions: Fall. Standard. Activity as tolerated. Patient Profile/Admitting Diagnosis: Susan Arthur is a 75-year-old female on palliative care with dementia, pancytopenia, hyperlipidemia, anemia, and type II DM. PMHX: All Active Problems?(Updated 07/19/21 @ 17:57 by Bettina Stoner, ZACK) Pancytopenia (Acute) Neutropenia (Acute) Palliative care patient (Acute) Abnormal ultrasound of abdomen (Acute) Cholecystitis (Acute 05/22/14) Lipoma (Acute) Uterine leiomyoma (Acute 01/26/01) Obesity (Acute) Hyperlipidemia (Acute 05/24/12) Essential hypertension (Acute 05/30/13) Diabetes mellitus (Acute 04/15/10) foot neuropathy Dementia (Acute 12/05/13) probable Alzheimers (2008 MRI, TSH and B 12 normal, [facility] Memory clinic eval) Diabetes mellitus, type II (Chronic) Essential hypertension (Chronic) Dementia (Chronic) Anemia (Chronic) Hyperlipidemia (Chronic) Biliary colic (Acute 05/19/14) Surgical History? Cholecystectomy 05/21/14 Social History/Home Situation: Patient a poor historian due to advancing dementia. Per MARCO A Castano's notes: Susan lives in [place] with her , Deshawn Macias), who is her primary caregiver. They have five children, seventeen grand children, and five great grand children. Their family is very supportive. She has advanced dementia and requires support with her ADL's and IADL's. Equipment Owned/DME: Unknown at this time Subjective: Agreeable to walkng with PT this morning. Objective: General Observation: Seated on chair. Mental Status: Alert but not oriented to date, place, and time. Able to follow simple, single-step commands. Pleasant. Speech content non-sensical. Responses off-tangent 100% of the time but surprisingly is able to follow short, simple instructions. Pain: None reported ROM: Right Upper Extremity: Grossly WFL Left Upper Extremity: Grossly WFL Right Lower Extremity: Grossly WFL Left Lower Extremity: Grossly WFL Strength: Right Upper Extremity: Grossly 4/5 Left Upper Extremity: Grossly 4/5 Right Lower Extremity: Grossly 4/5 Left Lower Extremity: Grossly 4/5 Bed Mobility/Transfers: Sit to stand supervision Stand to sit supervision Bed to reclining chair supervision Gait: Guided patient with level surface ambulation of 300 feet requiring supervision assist without assistive device. Destiny decreased. Balance: Static Sitting: Normal Dynamic Sitting: Normal Static Standing: Good Dynamic Standing: Good Special Tests: Mobility Limitations Standardized Measure [facility] 6 clicks Basic Mobility Inpatient Short Form: Raw Score: 23 CMS Score: 11% deficit Informed Consent/Education: agreeable to having assessed for safety while on admission. ASSESSMENT: Requires no assistive device for level surface ambulation. Will have 24/7 supervision at home. No services needed at this time. Nursing staff may walk with patient in the hallway with supervision assist. Patient presents with clinical signs and symptoms consistent with current/admitting diagnoses that have resulted to mobility limitations, gait instability, generalized weakness, and overall ADL decline as demonstrated by the following impairment level findings: 1. Advanced dementia Impairments are contributing to the following functional limitations: 1. Inability to thrive at home without 24/7 supervision Patient is assessed as a [id number] moderate complexity based on the following: History: 75-year-old female with past medical history as indicated above Examination: Demonstrable impairment in strength, balance, and mobility level with underlying impairments and functional limitations as exhibited above as well as deficit score of 11% utilizing the [facility] Mobility Inpatient Short Form Presentation: Evolving Decision Makin moderate complexity Goals: N/A. PT evaluation only. Plan of Care/Treatment Plan: N/A. PT evaluation only. DISCHARGE RECOMMENDATIONS: [] Home with no services [] [] Home with services [specify] [] Home with outpatient PT [] [] SNF for continued rehabilitation [] [] Detention Care [] [] SNF versus LTC based on ability to participate and progress [] [X] Home with 24/7 supervision when medically cleared by hospitalist [X] May walk with nursing staff in the hallway requiring supervision without an assistive device while on admission TREATMENT CODE/TIME: 21041 x 27 minutes beginning at 9:55 AM. Thank you for the opportunity to participate in the care of this patient. Martina Montaño PT, DPT, CLT [facility] [place], [place]
--- NOTE | 2021-07-20 11:04 | PDOC.CMIN ---
- If Service Date Differs Date of service: 07/20/21 Time of Service: 11:04 Care Management Initial Assess REASON FOR HOSPITALIZATION:: Pancytopenia PAST MEDICAL HISTORY/PAST SURGICAL HISTORY:: All Active Problems. Pancytopenia (Acute). Neutropenia (Acute). Palliative care patient (Acute). Abnormal ultrasound of abdomen (Acute). Cholecystitis (Acute 05/22/14). Lipoma (Acute). Uterine leiomyoma (Acute 01/26/01). Obesity (Acute). Hyperlipidemia (Acute 05/24/12). Essential hypertension (Acute 05/30/13). Diabetes mellitus (Acute 04/15/10). foot neuropathy. Dementia (Acute 12/05/13). probable Alzheimers (2008 MRI, TSH and B 12 normal, [facility] Memory clinic eval). Diabetes mellitus, type II (Chronic). Essential hypertension (Chronic). Dementia (Chronic). Anemia (Chronic). Hyperlipidemia (Chronic). Biliary colic (Acute 05/19/14). Surgical History. Cholecystectomy. 05/21/14 PREVIOUS FUNCTIONAL STATUS/SOCIAL/FAMILY SUPPORTS:: Susan lives in [place] with her , Deshawn Macias), who is her primary caregiver. They have five children, seventeen grand children, and five great grand children. Their family is very supportive. She has advanced dementia and requires support with her ADL's and IADL's. CURRENT FUNCTIONAL STATUS:: Susan was sitting up in a chair with her lunch in front of her when CM met with her. Her was visiting, and was encouraging her to eat her lunch. He stated that his primary concern is that she has not been eating for a couple weeks. She was not engaged in conversation, and fell asleep while MARCO A was talking to Shabana, Susan's . Shabana stated that she is a Palliative patient of Dr. Leblanc, who has been supporting them through the progression of her dementia. Palliative Care has been consulted to discuss goals of care, as per report, her labs are concerning for leukemia, and they do not want to pursue a work up for this. Palliative care is not available today. CM asked Palliative care to have Susan as a priority inpatient visit for tomorrow. CM will continue to follow. ADVANCE DIRECTIVES:: COLST and AD both on file, her Deshawn Macias) listed as agent. Has patient been provided with info about the portal/API?: Yes Did the patient sign up for the portal?: No CODE STATUS:: DNR/DNI INSURANCE COVERAGE / FINANCIAL ISSUES:: [facility]/ Amari retana Tony CURRENT HOME/COMMUNITY SERVICES/EQUIPMENT:: Susan's Shabana is her primary caregiver, assisting her with ADL's. PRIMARY CARE PHYSICIAN:: Liam Connolly POTENTIAL DISCHARGE NEEDS:: Evaluations for further needs, follow up appointments. PATIENT/FAMILY EDUCATION NEEDS:: Review discharge instructions and limitations with Shabana, discussion of self care needs including ask me three and goals of care. ANTICIPATED BARRIERS TO DISCHARGE:: None identified at this time. TRANSPORTATION:: Via private vehicle by family. PLAN:: Anticipate Susan will return home when medically cleared. She may benefit from services upon discharge. Her will drive her home via private vehicle. She will follow up with her PCP and discharge plan of care. CM will continue to follow.
--- NOTE | 2021-07-20 13:57 | W.PM.PROGNOT ---
Date of Service Date of service: 07/20/21 Time of Service: 12:57 Assessment and Plan Assessment and plan (1) Pancytopenia: Status: Acute Assessment and plan: agreed to transfuse 1 unit of blood in ED which was completed. hemoglobin up to 6.8. does not appear to have any symptoms but unable to provide. Labs concerning for leukemia and does not pursue work up or treatment. she has been seen by Dr Leblanc in the past and will consult palliative care for goals of care discussion and further recommendations at this time. He wants to take her home and is making arrangements accordingly patient is DNR/DNI (2) Dementia: Status: Acute Assessment and plan: severe advanced. she is at her baseline. safety precautions (3) Diabetes mellitus, type II: Status: Chronic Assessment and plan: managed at home on oral agents. will continue at this time with a carb controlled diet no finger sticks or coverage for now pending palliative care consult (4) Discharge planning issues: Status: Acute Assessment and plan: anticipate a discharge to home with home health services tomorrow. discussed with Dr Lee Subjective Subjective Patient reports: no new complaints Interval history since last seen: unable to provide any history d/t severe advanced dementia. Exam Const General: cooperative, comfortable, no acute distress, well developed and well groomed Nutritional Appearance: well nourished Orientation: alert, awake and confused (severe advanced dementia) [facility] Head: normal to inspection, normocephalic and atraumatic Mouth: oral mucosae normal Chest Chest: normal inspection of the chest Resp Effort & Inspection: normal respiratory effort Auscultation: clear to auscultation bilaterally Cardio Rate: regular rate Rhythm: regular rhythm GI Inspection: normal to inspection Palpation: soft Auscultation: normal bowel sounds Skin General skin exam: no rashes or lesions noted Neuro General: patient alert, patient awake, tone normal and moves all extremities Extrem General: normal to inspection, full ROM and no pedal edema Objective Last Vital Signs Temp 36.7 C 07/20/21 07:12 Pulse 65 07/20/21 07:12 Resp 17 07/20/21 07:12 BP 114/67 07/20/21 07:12 Pulse Ox 99 07/20/21 07:12 Laboratory Results - last 24 hr 07/19/21 07/19/21 07/19/21 14:44 14:44 15:09 WBC 1.04 L* RBC 2.07 L Hgb 6.0 L* Hct 17.6 L* MCV 85 MCH 29.0 MCHC 34.1 RDW 15.8 H Plt Count MPV Immature Gran % 0.0 Neutrophils % 8.0 Band Neutrophils % 1 Lymphocytes % 91.0 Monocytes % 0.0 Eosinophils % 0.0 Basophils % 0.0 Metamyelocytes % Nucleated RBC % 4.0 H Absolute Neutrophils 0.08 L* Absolute Lymphocytes 0.95 L Absolute Monocytes 0.00 L Absolute Eosinophils 0.00 Absolute Basophils 0.00 RBC Morphology See Below Polychromasia Present Poikilocytosis 1+ Anisocytosis 1+ Sodium 138 Potassium 2.7 L* Chloride 99 Carbon Dioxide 26.0 Anion Gap 13.0 H BUN 17 Creatinine 0.9 Estimated GFR/1.73 m2 >= 60.00 Glucose 254 H Calcium 8.7 Magnesium 2.0 Total Bilirubin 1.2 H AST 31 ALT 21 Alkaline Phosphatase 102 Troponin I < 50 Total Protein 7.7 Albumin 3.7 TSH 1.23 COVID-19 Source Nasal/Nares SARS-CoV-2 (PCR) Negative Patient ABO/Rh Antibody Screen Crossmatch 07/19/21 07/20/21 07/20/21 16:36 05:51 05:51 WBC 1.18 L* RBC 2.33 L Hgb 6.8 L* Hct 20.0 L* MCV 86 MCH 29.2 MCHC 34.0 RDW 15.5 H Plt Count 88 L MPV 10.0 Immature Gran % 0.0 Neutrophils % 8.0 Band Neutrophils % 2 Lymphocytes % 84.0 Monocytes % 0.0 Eosinophils % 0.0 Basophils % 4.0 Metamyelocytes % 2 Nucleated RBC % 6.0 H Absolute Neutrophils 0.12 L* Absolute Lymphocytes 0.99 L Absolute Monocytes 0.00 L Absolute Eosinophils 0.00 Absolute Basophils 0.05 RBC Morphology Normal Polychromasia Poikilocytosis Anisocytosis Sodium 143 Potassium 3.0 L Chloride 107 Carbon Dioxide 24.0 Anion Gap 12.0 H BUN 16 Creatinine 0.8 Estimated GFR/1.73 m2 >= 60.00 Glucose 228 H Calcium 8.0 L Magnesium Total Bilirubin 1.2 H AST 25 ALT 19 Alkaline Phosphatase 89 Troponin I Total Protein 6.5 Albumin 3.0 L TSH COVID-19 Source SARS-CoV-2 (PCR) Patient ABO/Rh B Positive Antibody Screen NEGATIVE Crossmatch See Detail
[2021-07-20 14:35] LABS: Bilirubin Negative (Negative); Blood Negative (Negative); Clarity Clear (Clear); Glucose 500 mg/dL (Negative); Ketones Negative (Negative); Leukocyte Esterase Negative (Negative); Nitrite Negative (Negative)
[2021-07-20 15:32] VITALS: BP 122/76; PULSE 78; RESP 16; TEMP 36.5; O2SAT 99
--- NOTE | 2021-07-20 17:00 | CHAPLAIN ---
I visited Susan this morning. Some of what she said didn't make sense, like talking about someone getting on the school bus. I checked in later in the day to speak with her , Shabana, but the hospitalist then came in to speak with Shabana. I'll try again tomorrow. Shabana is expected to meet with someone from tomorrow before Susan is discharged.
[2021-07-20 23:00] VITALS: BP 127/75; PULSE 67; RESP 16; TEMP 36.7; O2SAT 98
[2021-07-21 00:31] VITALS: BP 120/63; PULSE 72; RESP 16; TEMP 36.7; O2SAT 100
[2021-07-21 07:33] VITALS: BP 127/75; PULSE 77; RESP 16; TEMP 36.3; O2SAT 100
[2021-07-21] MEDS: hydroCHLOROthiazide 25 MG TAB PO (07:40)
--- NOTE | 2021-07-21 12:34 | W.PM.DS.N ---
Date of service: 07/21/21 Time of Service: 11:35 DS: Diagnosis Discharge Diagnosis (1) Pancytopenia: Status: Acute (2) Dementia: Status: Acute (3) Diabetes mellitus, type II: Status: Chronic Discharge Plan Disposition Patient Disposition: HOME Condition: Fair Discharge Details Reason For Visit: Pancytopenia Admit Date/Time: 07/19/21 16:20 Admit Provider: Funmilayo Lee Attending Provider: Funmilayo Lee Primary Care Provider: Liam Connolly Hospital Course Hospital Course: Susan was seen in the ED 07/19/21 . She has a history of hypertension, hyperlipidemia, diabetes, and dementia. Her reported she had been eating a lot less and becoming much more weak. Her WBC on admission 1.04, potassium 2.7 and H&H 6.0 and 17.6. She was given one unit of PRBC's and her potassium was repleted. She was admitted. Palliative care was consulted regarding goals of care and her has chosen to taker her home on hospice care. Reviewed with Dr Lee Home Meds and New Rx's Prescriptions: Continued (DME) FreeStyle Lite Strips Strip 1 strip Miscellaneous DAILY Qty: 90 3RF Rx Instructions: DX: E11.9, oral meds metformin 500 mg tablet 500 mg PO BID Qty: 180 4RF (DME) blood-glucose meter [FreeStyle Lite Meter] 1 EACH kit 1 ea Miscellaneous DAILY Qty: 1 Rx Instructions: DX: 250.00 cyanocobalamin (vitamin B-12) [Vitamin B-12] 500 MCG tablet 1 tab PO DAILY Qty: 180 (DME) lancets [FreeStyle Lancets] 1 EACH misc 1 ea Intradermal DAILY Qty: 50 Rx Instructions: DX:250.00 ON ORAL AGENTS hydrochlorothiazide 25 mg tablet 25 mg PO DAILY Qty: 90 4RF diltiazem HCl [Cartia XT] 120 mg capsule,extended release 24hr 120 mg PO DAILY Qty: 90 3RF potassium chloride 10 mEq tablet extended release 10 meq PO BID Qty: 180 3RF pravastatin 80 mg tablet 80 mg PO DAILY Qty: 90 3RF glimepiride [Amaryl] 2 mg tablet 2 mg PO QAM Qty: 90 1RF Rx Instructions: administer with breakfast Discharge Instructions Instructions: Dementia (GEN), Pancytopenia (DC), Type 2 Diabetes in the Older Adult (DC) Additional Instructions: Follow up with Palliative Care Stand Alone Forms: Nursing Discharge Form Referrals: Liam Connolly MD [Primary Care Provider] - 07/28/21 11:20 am Activity:: Activity as Tolerated Equipment/Supplies:: No Equipment Needed Diet:: As Tolerated Discharge Orders Discharge Orders: Discharge Order (Routine); Ordered 07/21/21 Ordered By: Keshia Shaw DS: Summary Time Spent with Patient providing and/or coordinating discharge services: Less than 30 minutes Status at Discharge Functional status at discharge: uses cane/walker Overall status at discharge: patient is not back to baseline Mental Status: mental status grossly normal (Advanced dementia - not oriented to person, place, time or situation) Speech and Movement: delayed speech and slowed movement Mood: labile mood Affect: blunted Exam Const General: cooperative, comfortable, no acute distress, well developed and well groomed Nutritional Appearance: well nourished Orientation: alert, awake and confused (severe advanced dementia) [facility] Head: normal to inspection, normocephalic and atraumatic Mouth: oral mucosae normal Chest Chest: normal inspection of the chest Resp Effort & Inspection: normal respiratory effort Auscultation: clear to auscultation bilaterally Cardio Rate: regular rate Rhythm: regular rhythm GI Inspection: normal to inspection Palpation: soft Auscultation: normal bowel sounds Skin General skin exam: no rashes or lesions noted Neuro General: patient alert, patient awake, tone normal and moves all extremities Extrem General: normal to inspection, full ROM and no pedal edema Psych Mental Status: mental status grossly normal (Advanced dementia - not oriented to person, place, time or situation) Speech and Movement: delayed speech and slowed movement Mood: labile mood Affect: blunted DS: Data Vitals/I&O Vitals and I&O: Vital Signs Temperature 36.3 C L 07/21/21 07:33 Temperature Source Tympanic 07/21/21 00:31 Pulse 77 07/21/21 07:33 Pulse Rhythm Regular 07/21/21 07:45 Respiratory Rate 16 07/21/21 07:33 Respiratory Effort Non-Labored 07/21/21 07:45 Respiratory Depth Normal 07/21/21 07:45 Respiratory Pattern Normal 07/21/21 07:45 Blood Pressure 127/75 07/21/21 07:33 Pulse Oximetry 100 07/21/21 07:33 Oxygen Delivery Method Room Air 07/21/21 07:33 Oxygen Flow Rate 0 07/21/21 07:33 Pain Level 0 07/21/21 07:33 Intake & Output 07/20/21 07/21/21 07/21/21 23:59 11:59 23:59 Intake Total 240 / 690 Output Total 500 / 500 300 / 300 Balance -260 / 190 -300 / -300 Intake: Oral 240 / 690 Output: Urine 500 / 500 300 / 300 Other: Urine Color Straw Straw Urine Appearance Clear Clear Urine Odor Normal Normal Comment pT sat on toilet and had no void. Voiding Methods Toilet Toilet Data Completed and Pending Labs on day of discharge: Labs from last 24 hours 07/20/21 07/19/21 07/19/21 14:13 15:13 14:44 Urine Color Yellow Cancelled Urine Clarity Clear Cancelled Urine pH 6.0 Cancelled Ur Specific [facility] 1.020 Cancelled Urine Protein Negative Cancelled Urine Ketones Negative Cancelled Urine Blood Negative Cancelled Urine Nitrite Negative Cancelled Urine Bilirubin Negative Cancelled Urine Urobilinogen 4.0 H Cancelled Ur Leukocyte Esterase Negative Cancelled Urine Glucose [address] Cancelled Path Cons Comment SEE COMMENT Imaging Chest x-ray: Radiologist's impression: EXAM:? XR PORTABLE CHEST AP CLINICAL HISTORY:? cough TECHNIQUE:? 2D digital imaging was performed.? Portable exam. COMPARISON:? CT CT ABDOMEN ? PELVIS W from 08/16/2019 FINDINGS: ?Lungs poorly inflated. LUNGS: Clear. No pleural abnormality seen. HEART: Normal. AORTA: Calcified.? Normal diameter.. BONES: Unremarkable for age.? Soft tissues: Unremarkable. IMPRESSION: No acute? findings. Dictated By: Muna Arauz M.D. ? 07/19/21 1541 ? <Electronically signed by Muna Arauz M.D. in [place]> ? 07/19/21 154 Lab and Radiology Reports: Laboratory Results WBC 1.18 10^3/uL (4.4-10.8) L* 07/20/21 05:51 RBC 2.33 10^6/uL (3.93-5.22) L 07/20/21 05:51 Hgb 6.8 g/dL (11.2-15.7) L* 07/20/21 05:51 Hct 20.0 % (36.0-46.0) L* 07/20/21 05:51 MCV 86 fL (80-95) 07/20/21 05:51 MCH 29.2 pg (27.0-33.0) 07/20/21 05:51 MCHC 34.0 % (32.0-36.0) 07/20/21 05:51 RDW 15.5 % (11.7-14.6) H 07/20/21 05:51 Plt Count 88 10^3/uL (130-400) L 07/20/21 05:51 MPV 10.0 fL (8.0-11.0) 07/20/21 05:51 Immature Gran % 0.0 07/20/21 05:51 Neutrophils % 8.0 07/20/21 05:51 Band Neutrophils % 2 07/20/21 05:51 Lymphocytes % 84.0 07/20/21 05:51 Monocytes % 0.0 07/20/21 05:51 Eosinophils % 0.0 07/20/21 05:51 Basophils % 4.0 07/20/21 05:51 Metamyelocytes % 2 07/20/21 05:51 Nucleated RBC % 6.0 % (0.0-0.3) H 07/20/21 05:51 Absolute Neutrophils 0.12 10^3/uL (1.2-6.7) L* 07/20/21 05:51 Absolute Lymphocytes 0.99 10^3/uL (1.2-3.4) L 07/20/21 05:51 Absolute Monocytes 0.00 10^3/uL (0.1-0.8) L 07/20/21 05:51 Absolute Eosinophils 0.00 10^3/uL (0.0-0.7) 07/20/21 05:51 Absolute Basophils 0.05 10^3/uL (0.0-0.2) 07/20/21 05:51 RBC Morphology Normal 07/20/21 05:51 Polychromasia Present 07/19/21 14:44 Poikilocytosis 1+ 07/19/21 14:44 Anisocytosis 1+ 07/19/21 14:44 Sodium 143 mmol/L (136-145) 07/20/21 05:51 Potassium 3.0 mmol/L (3.5-5.1) L 07/20/21 05:51 Chloride 107 mmol/L (98-107) 07/20/21 05:51 Carbon Dioxide 24.0 mmol/L (21.0-32.0) 07/20/21 05:51 Anion Gap 12.0 mmol/L (3-11) H 07/20/21 05:51 BUN 16 mg/dL (7-18) 07/20/21 05:51 Creatinine 0.8 mg/dL (0.55-1.02) 07/20/21 05:51 Estimated GFR/1.73 m2 >= 60.00 (mL/min/1.73m2) 07/20/21 05:51 Glucose 228 mg/dL (74-106) H 07/20/21 05:51 Calcium 8.0 mg/dL (8.5-10.1) L 07/20/21 05:51 Magnesium 2.0 mg/dL (1.8-2.4) 07/19/21 14:44 Total Bilirubin 1.2 mg/dL (0.2-1.0) H 07/20/21 05:51 AST 25 U/L (15-37) 07/20/21 05:51 ALT 19 U/L (14-59) 07/20/21 05:51 Alkaline Phosphatase 89 U/L (46-116) 07/20/21 05:51 Troponin I < 50 ng/L (<or=60) 07/19/21 14:44 Total Protein 6.5 g/dL (6.4-8.2) 07/20/21 05:51 Albumin 3.0 g/dL (3.4-5.0) L 07/20/21 05:51 TSH 1.23 uIU/mL (0.36-3.74) 07/19/21 14:44 Urine Color Yellow (Yellow) 07/20/21 14:13 Urine Clarity Clear (Clear) 07/20/21 14:13 Urine pH 6.0 (5-8) 07/20/21 14:13 Ur Specific [facility] 1.020 (1.005-1.025) 07/20/21 14:13 Urine Protein Negative mg/dL (Negative) 07/20/21 14:13 Urine Ketones Negative mg/dL (Negative) 07/20/21 14:13 Urine Blood Negative (Negative) 07/20/21 14:13 Urine Nitrite Negative (Negative) 07/20/21 14:13 Urine Bilirubin Negative (Negative) 07/20/21 14:13 Urine Urobilinogen 4.0 EU/dL (Up TO 0.2) H 07/20/21 14:13 Ur Leukocyte Esterase Negative (Negative) 07/20/21 14:13 Urine Glucose 500 mg/dL (Negative) H 07/20/21 14:13 COVID-19 Source Nasal/Nares 07/19/21 15:09 SARS-CoV-2 (PCR) Negative (Negative) 07/19/21 15:09 Path Cons Comment SEE COMMENT 07/19/21 14:44 Patient ABO/Rh B Positive 07/19/21 16:36 Antibody Screen NEGATIVE 07/19/21 16:36 Crossmatch See Detail 07/19/21 16:36 PFSH All Active Problems (Updated 07/21/21 @ 13:56 by Tigist Marquez NP) Encounter for hospice care discussion (Acute) Discharge planning issues (Acute) Pancytopenia (Acute) Neutropenia (Acute) Palliative care patient (Acute) Abnormal ultrasound of abdomen (Acute) Cholecystitis (Acute 05/22/14) Lipoma (Acute) Uterine leiomyoma (Acute 01/26/01) Obesity (Acute) Hyperlipidemia (Acute 05/24/12) Essential hypertension (Acute 05/30/13) Diabetes mellitus (Acute 04/15/10) foot neuropathy Dementia (Acute 12/05/13) probable Alzheimers (2008 MRI, TSH and B 12 normal, [facility] Memory clinic eval) Diabetes mellitus, type II (Chronic) Essential hypertension (Chronic) Dementia (Chronic) Anemia (Chronic) Hyperlipidemia (Chronic) Biliary colic (Acute 05/19/14) Surgical History Cholecystectomy 05/21/14 Family History Mother Diabetes Essential hypertension Heart disease Father Essential hypertension Personal history of malignant neoplasm Heart disease Hyperlipidemia Sister No problems noted. Sister Personal history of malignant neoplasm Brother Diabetes Brother No problems noted. Brother No problems noted. Grandfather No problems noted. Grandfather Essential hypertension Heart disease Grandmother Diabetes Personal history of malignant neoplasm Grandmother Diabetes Essential hypertension Brother Heart disease Brother No problems noted. Daughter No problems noted. Daughter No problems noted. Social History Smoking/Tobacco Use Status: Never Smoking risk assessment performed?: Yes Alcohol Intake: current Alcohol Intake frequency: a few times a month Drug use: Never Substance use type: does not use Duration: 15-30 minutes/day Frequency: 1-2 times per week
[2021-07-21] MEDS: Potassium Chloride 20 MEQ TABCR 40 MEQ PO (13:07)
--- NOTE | 2021-07-21 13:43 | PCNE_ITS ---
Date of service: 07/21/21 Time of Service: 12:30 History of Present Illness Narrative: Mrs. Davis is a 75 y/o F currently inpatient at [facility] 2/2 weakness and suspected leukemia; PMHx sig for hypertension, hyperlipidemia, diabetes, dementia; established [facility] pt, f/b Dr. Leblanc; present today Shabana and daughter Mitchel, (Shabana) and daughter (Mitchel) provide report, pt does not engage in visit Pt was having increasing ADL/care dependence at home, decreased appetite resulting in weight loss and increased weakness, has been progressive and lately has been more pronounced; aware of labs concerning for leukemia, both at PCP office and now in hospital, report PCP consulted [facility] which agreed w/likely leukemia; preference to not pursue work-up at this time and have goals of comfort and care, pt returning home as soon as possible; Report family currently in process of transitioning pt and to side-ap artment to main home, which is all single story, w/easy access to bathroom; have walker in home, no urgent DME needed at this time, but anticipate future need; feel safe and comfortable bringing pt home, , daughter Mitchel and son Caden all available to provide care; son Caden lives in home and had been provided care 3x/wk while works; also in home is daughter ELENA and children; plenty of support from family; daughter Mitchel works for [employer] aware of resources avail; would like assistance w/ADL, specifically bathing a few times a wk from trained professionals; would like to pursue hospice admission at this time Goals: get home JEANNINE, keep pt comfort and in caring environment; hospice; DNR/I, [employer] Hospital course: presented to [facility] ED on 07/19/21 w/CC generalized weakness; transferred to inpatient pancytopenia, Labs concerning for leukemia, /caregiver does not wish to pursue work up; [facility] consult to discuss C Assessment and Plan Assessment and plan (1) Neutropenia: Status: Acute Assessment and plan: seeking no further work up for suspected leukemia weight loss, decreased appetite, increased dependence ADLs, weakness PPS 50% (2) Dementia: Status: Acute Assessment and plan: FAST score : 6d (3) Encounter for hospice care discussion: Status: Acute Assessment and plan: family agreeable to hospice admission; to be discharged home today, hospice to present to home tomorrow Review of Systems Constitutional Constitutional: Reports as per HPI (unobtainable d/t mental condition) PFSH All Active Problems (Updated 07/21/21 @ 13:56 by Tigist Marquez NP) Encounter for hospice care discussion (Acute) Discharge planning issues (Acute) Pancytopenia (Acute) Neutropenia (Acute) Palliative care patient (Acute) Abnormal ultrasound of abdomen (Acute) Cholecystitis (Acute 05/22/14) Lipoma (Acute) Uterine leiomyoma (Acute 01/26/01) Obesity (Acute) Hyperlipidemia (Acute 05/24/12) Essential hypertension (Acute 05/30/13) Diabetes mellitus (Acute 04/15/10) foot neuropathy Dementia (Acute 12/05/13) probable Alzheimers (2008 MRI, TSH and B 12 normal, [facility] eval) Diabetes mellitus, type II (Chronic) Essential hypertension (Chronic) Dementia (Chronic) Anemia (Chronic) Hyperlipidemia (Chronic) Biliary colic (Acute 05/19/14) Surgical History Cholecystectomy 05/21/14 Family History Mother Diabetes Essential hypertension Heart disease Father Essential hypertension Personal history of malignant neoplasm Heart disease Hyperlipidemia Sister No problems noted. Sister Personal history of malignant neoplasm Brother Diabetes Brother No problems noted. Brother No problems noted. Grandfather No problems noted. Grandfather Essential hypertension Heart disease Grandmother Diabetes Personal history of malignant neoplasm Grandmother Diabetes Essential hypertension Brother Heart disease Brother No problems noted. Daughter No problems noted. Daughter No problems noted. Social History Smoking/Tobacco Use Status: Never Smoking risk assessment performed?: Yes Alcohol Intake: current Alcohol Intake frequency: a few times a month Drug use: Never Substance use type: does not use Duration: 15-30 minutes/day Frequency: 1-2 times per week Exam Narrative Exam Narrative: pt sitting upright in chair at start of visit, able to independently transfer to commode and to bed w/observation; non-sensicle speech w/daughter, does not engage otherwise; comfortable Const General: cooperative, comfortable and no acute distress Orientation: alert and awake Resp Effort & Inspection: normal respiratory effort Skin General skin exam: no rashes or lesions noted Extrem General: no pedal edema Psych Appearance: grossly normal Affect: indifferent Results Last Vital Signs Temp 97.3 F L 07/21/21 07:33 Pulse 77 07/21/21 07:33 Resp 16 07/21/21 07:33 BP 127/75 07/21/21 07:33 Pulse Ox 100 07/21/21 07:33 Labs Result diagrams: 07/20/21 05:51 07/20/21 05:51 Labs: Laboratory Results - last 24 hr 07/19/21 07/19/21 07/20/21 14:44 15:13 14:13 Urine Color Cancelled Yellow Urine Clarity Cancelled Clear Urine pH Cancelled 6.0 Ur Specific Brandon Cancelled 1.020 Urine Protein Cancelled Negative Urine Ketones Cancelled Negative Urine Blood Cancelled Negative Urine Nitrite Cancelled Negative Urine Bilirubin Cancelled Negative Urine Urobilinogen Cancelled 4.0 H Ur Leukocyte Esterase Cancelled Negative Urine Glucose Cancelled [address] Cons Comment SEE COMMENT
--- NOTE | 2021-07-21 16:27 | PDOC.CMDIS ---
- If Service Date Differs Date of service: 07/21/21 Time of Service: 16:27 LACE Index Scoring Tool - Questions: Length of Stay (in days): 2 Acuity (Admit via E.D.?): Yes Comorbidities: Diabetes w/o Complication, Dementia E.D. Visits: 1 - Answers: Total Score: 11 Risk of Readmission: High Risk Care Management Discharge Reason for Hospitalization: Pancytopenia Discharge Plan: Susan returned home today with her and daughter, after meeting with Palliative care. She will be admitted to Hospice, likely tomorrow, coordinated by Palliative Care. She was driven home via private vehicle. She was happy to be going home. Patient/Family Education Needs: Review discharge instructions and limitations, discussion of self care needs and goals of care. Services Needed at Discharge: Home Health Care Services (Hospice)
== END 2021-07-21 14:31 | disposition home or self-care (01) | DRG 841 ==
LOC: ER 15:43 → MS 17:14
PROVIDERS: Nurse Practitioner Acute Care; Admitting Provider Internal Medicine; Emergency Provider Student in an Organized Health Care Education/Training Program; PCP Family Medicine; Visit Provider Internal Medicine
DX: C95.90 Leukemia, unspecified not having achieved remission (principal); D61.818 Other pancytopenia; R53.1 Weakness; I10 Essential (primary) hypertension; E78.5 Hyperlipidemia, unspecified; E11.42 Type 2 diabetes mellitus with diabetic polyneuropathy; D64.9 Anemia, unspecified; G30.9 Alzheimer's disease, unspecified; F02.80 Dementia in other diseases classified elsewhere, unspecified severity, without behavioral disturbance, psychotic disturbance, mood disturbance, and anxiety; Z66 Do not resuscitate
CPT/HCPCS: 36415; 80053; 86850; 86900; 86901; 86920; 86945; 87635; 93005; 96361; 96365; 97162; 99285; 71045; 81003; 83735; 84443; 84484; 85025; 93010; 99222; 99232; 99238; G0378; J3480; P9016